=== PATIENT | male | born 1980 | race Caucasian/White ===

== ENCOUNTER 2019-07-27 08:48 | Inpatient (IN) | payer OTHER ==
[2019-07-27] MEDS ORDERED: Lactated Ringers 1,000 ML IV ONE (09:03)
[2019-07-27] MEDS ORDERED: Pantoprazole 40 MG Vial IVPUSH ONE (09:03)
[2019-07-27] MEDS ORDERED: Ondansetron 4 MG/2 ML SDV IVPUSH ONE (09:03)
[2019-07-27] MEDS ORDERED: Famotidine 20 MG/2 ML SDV IVPUSH ONE (09:03)
--- NOTE | 2019-07-27 09:03 | EDM.PDOC ---
ED HPI GENERAL MEDICAL PROBLEM - General Chief Complaint: Gastrointestinal Problem Stated Complaint: N/V, Fever Time Seen by Provider: 07/27/19 08:55 Source of Information: Reports: Patient, Family, Old Records ([facility] EMR. No paper hospital chart available.) History Limitations: Reports: No Limitations () - History of Present Illness INITIAL COMMENTS - FREE TEXT/NARRATIVE: The patient was brought to the emergency room via private automobile by his for evaluation of a 4 day history of generalized 8/10 arthralgias and generalized headache with additional fever and chills, however he did not measure his temperature. The patient did take Dramamine yesterday evening, however no other medications, including recent antipyretics. He denies any known exposure to infection, food poisoning, etc. Patient had about 6 episodes of emesis yesterday evening with no bowel movement during the last 4 days. He has not received his influenza booster to this point. He has had some anorexia during the last couple of days. No recent history of abdominal pain, heartburn, hematemesis, diarrhea, melena, gross hematochezia, or any food intolerance, including fatty foods, etc.. The patient denies any chest pain/pressure, heart flutter, dizziness, orthostasis, orthopnea, diaphoresis, paresthesias, recent decreased exercise tolerance, or any other anginal-type symptoms. He is also had a nonproductive cough with no dyspnea, wheezing, etc. He denies any gross hematuria, colic, or other UTI symptoms. Onset: Today, Sudden Onset Date: 07/24/19 Onset Time: 13:00 Duration: Constant, Getting Worse Location: Reports: Generalized Quality: Reports: Ache, Same as Previous Episode Severity: Moderate Improves with: Reports: None Worsens with: Reports: None Context: Reports: Other (As above). Denies: Sick Contact, Trauma Associated Symptoms: Reports: Cough, Diaphoresis, Fever/Chills, Headaches, Loss of Appetite, Nausea/Vomiting, Weakness (Secondary to current infection generalized). Denies: Confusion, Chest Pain, cough w sputum, Malaise, Rash, Seizure, Shortness of Breath, Syncope Treatments [employer]: Reports: Other Medication(s) (As above) Generalized Pain Score (Numeric/FACES): 8 - Related Data Allergies Allergy/AdvReac Type Severity Reaction Status Date / Time No Known Allergies Allergy Verified 07/27/19 08:49 Past Medical History HEENT History: Reports: Impaired Vision, Other (See Below). Denies: Allergic Rhinitis, Cataract, Hard of Hearing, Retinal Detachment Other HEENT History: Patient probably needs glasses, however has not had a recent eye exam or has any glasses.. Cardiovascular History: Reports: Other (See Below). Denies: Afib, Aneurysm, Arrhythmia, Blood Clots/VTE/DVT, CAD, Heart Failure, Heart Murmur, High Cholesterol, Hypertension, NV, Syncope Other Cardiovascular History: He does not know his cholesterol status. Respiratory History: Reports: None. Denies: Asthma, Bronchitis, Recurrent, COPD , Intubation, Difficult, Intubation, Previous, PE, Pneumothorax, TB Gastrointestinal History: Reports: Hemorrhoids. Denies: Bowel Obstruction, Celiac Disease, Chronic Constipation, Chronic Diarrhea, Colon Polyp, Gastritis, GERD, Hepatitis, Inflammatory Bowel Disease, Irritable Bowel Syndrome, Jaundice , Pancreatitis, PUD Genitourinary History: Reports: None. Denies: Acute Renal Failure, BPH, Chronic Renal Insuffiency, Renal Calculus, STD, Urinary Incontinence, UTI, Recurrent Musculoskeletal History: Reports: Fracture, Other (See Below). Denies: Amputation, Arthritis, Back Pain, Chronic, Gout, Neck Pain, Chronic, Osteoarthritis, RA, SLE Other Musculoskeletal History: Right thumb fracture in about 1995. Right finger #5 in 1999. Neurological History: Reports: Other (See Below). Denies: Cerebral Aneurysms, Concussion, CVA, Frequent Repetitive Habits (TICS), Headaches, Chronic, Head Trauma, Migraines, Neuropathy, Peripheral, Parkinson's, Seizure, TIA, Vertigo Other Neuro History: Chronic tic. Psychiatric History: Reports: None. Denies: Abuse, Victim of, ADD, ADHD, Addiction, Anxiety, Depression, Psych Hospitalization(s), PTSD, Suicide Attempt , Suicidal Ideation Endocrine/Metabolic History: Reports: None. Denies: Diabetes, Gestational, Diabetes, Type I, Diabetes, Type II, Diabetes Mellitus, Type 3c, Hypothyroidism , IDDM Hematologic History: Reports: None. Denies: Anemia, Blood Transfusion(s), Iron Deficiency Immunologic History: Reports: None. Denies: AIDS, HIV, SLE Oncologic (Cancer) History: Reports: None. Denies: Basal Cell Carcinoma, Colon , Hodgkin's Lymphoma, Leukemia, Lymphoma, Malignant Melanoma, Non-Hodgkin's Lymphoma, Squamous Cell Carcinoma Dermatologic History: Reports: None. Denies: Eczema, Psoriasis - Infectious Disease History Infectious Disease History: Reports: None, Chicken Pox. Denies: C-Difficile, Measles, Meningitis, Mononucleosis, MRSA, Mumps, Pertussis (Whooping Cough), Rheumatic Fever, Rubella, Scarlet Fever, Shingles, TB, VRE - Past Surgical History Head Surgeries/Procedures: Reports: None HEENT Surgical History: Reports: None. Denies: Adenoidectomy, Detached Retina, Eye Surgery, Laser Surgery, LASIK, Myringotomy w Tube(s), Naso-Sinus Surgery, Oral Surgery, Tonsillectomy Cardiovascular Surgical History: Reports: None. Denies: Varicose Respiratory Surgical History: Reports: None. Denies: Thoracentesis GI Surgical History: Denies: Appendectomy, Cholecystectomy, Colonoscopy, EGD, Hernia, Abdominal, Hernia, Inguinal, Hernia Repair/Other Male Surgical History: Reports: Circumcision, Other (See Below). Denies: Vasectomy Other Male Surgeries/Procedures: Circumcision as an infant Endocrine Surgical History: Reports: None. Denies: Thyroid Biopsy Neurological Surgical History: Reports: None. Denies: C-Spine, Discectomy, Laminectomy, Lumbar Spine, Sacral Spine, Spinal Fusion, Thoracic Spine, Vertebroplasty Musculoskeletal Surgical History: Reports: ORIF, Other (See Below). Denies: Arthroscopic Procedure, Carpal Tunnel, Ganglion Cyst, Joint Replacement, Shoulder Surgery Other Musculoskeletal Surgeries/Procedures:: ORIF of right fifth finger fracture in 1999. Oncologic Surgical History: Reports: None Dermatological Surgical History: Reports: None - Past Imaging History Past Imaging History: Reports: CAT Scan (Negative CT scan of the head on 01/23/16. ) Social & Family History - Family History HEENT: Reports: None. Denies: Glaucoma, Macular Degeneration, Retinal Detachment Cardiac: Denies: Afib, Aneurysm, Arrhythmia, Blood Clots/VTE/DVT, Bypass, CAD, Heart Failure, Heart Murmur, High Cholesterol, Hypertension, NV, Pacemaker, PVD/ COD Respiratory: Reports: COPD, Other (See Below). Denies: Asthma, PE, Pneumothorax , Sleep Apnea Other Respiratory Family Hisory: Paternal grandmother with fatal COPD in her late 80s. GI: Reports: None. Denies: Celiac Disease, Cholelithiasis, Colon Polyps, GERD, GI bleed, Inflammatory Bowel Disease, Irritable Bowel Syndrome, PUD : Reports: None. Denies: Renal Calculus, Renal Disease/Insufficiency, UTI, Recurrent OBGYN: Reports: None. Denies: Endometriosis, Recurrent Spontaneous Musculoskeletal: Reports: None. Denies: Arthritis, Gout, Osteoarthritis, RA, SLE Neurological: Reports: CVA, Other (See Below). Denies: Alzheimers Disease, Cerebral Aneurysms, Dementia, Migraines, MS, Parkinson's, Seizure, TIA, Vertigo Other Neurological Family History: Paternal grandfather with CVA initially in his 60s and then again in his 80s. Psychiatric: Reports: None. Denies: Abuse, Victim of, ADD, ADHD, Anxiety, Depression, Psych Hospitalization(s), PTSD, Suicide Attempt Endocrine/Metabolic: Reports: None. Denies: Diabetes, Type I, Diabetes, type II , Diabetes Mellitus, Type 3c, Hypothyroidism, IDDM Hematologic: Reports: None. Denies: Anemia, SLE Immunologic: Reports: None. Denies: AIDS, HIV, SLE Dermatologic: Reports: None. Denies: Eczema, Psoriasis Oncologic: Reports: Lung, Other (See Below). Denies: Colon, Hodgkin's Lymphoma , Leukemia, Lymphoma, Non-Hodgkin's Lymphoma, Prostate, Skin Other Oncologic Family History: Maternal grandmother with lung cancer in her mid 80s with history of tobacco use. - Tobacco Use Smoking Status *Q: Never Smoker Tobacco Use Within Last Twelve Months: No Used Tobacco, but Quit: No Smoking Cessation Information Provided To Patient: No Second Hand Smoke Exposure: No Second Hand Smoke Education Provided: No - Caffeine Use Caffeine Use: Reports: Coffee (4 cups per day), Energy Drinks (1 can per week), Soda (1 soda per day.). Denies: Tea - Alcohol Use Alcohol Use History: Yes Days Per Week of Alcohol Use: 0 Number of Drinks Per Day: 1 Number of Drinks Per Day Comment: Usually beer once per month. No previous DWIs , problems with alcohol abuse, etc. 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 ED EXAM, GI/ABD - Physical Exam Exam: See Below Exam Limited By: No Limitations General Appearance: Alert, WD/WN, No Apparent Distress Eyes: Bilateral: Normal Appearance (No nystagmus), EOMI (PERRLA) Ears: Normal External Exam, Normal Canal, Hearing Grossly Normal, Normal TMs Nose: Normal Mucosa, No Blood, Clear Rhinorrhea Throat/Mouth: Normal Lips, Normal Teeth, Normal Gums, Normal Voice, No Airway Compromise. No: Normal Oropharynx (Trace erythema in the posterior pharynx with no pinpoint exudates or peritonsillar abscess. Mild dry oral mucosa), Dysphagia, Perioral Cyanosis Head: Atraumatic, Normocephalic. No: Facial Swelling, Facial Tenderness, Sinus Tenderness Neck: Normal Inspection, Supple, Non-Tender, Full Range of Motion. No: Carotid Bruit, Lymphadenopathy (L), Lymphadenopathy (R), Thyromegaly Respiratory/Chest: No Respiratory Distress, No Accessory Muscle Use, Chest Non- Tender, Rales (Moderate in right upper posterior region). No: Rhonchi, Wheezing , Stridor, Pleural Rub, Retractions, Splinting Cardiovascular: Normal Peripheral Pulses, Regular Rate, Rhythm, No Edema, No Gallop, No JVD, No Murmur, No Rub. No: Gallop/S3, Gallop/S4, Friction Rub GI/Abdominal Exam: Soft, Non-Tender, No Organomegaly, No Distention, No Abnormal Bruit, No Mass, Pelvis Stable, Abnormal Bowel Sounds (Somewhat decreased diffuse bowel sounds however not high-pitched nature). No: Rebound, Tender (Male) Exam: Deferred Rectal (Males) Exam: Deferred Back Exam: Normal Inspection, Full Range of Motion. No: CVA Tenderness (L), CVA Tenderness (R), Muscle Spasm Extremities: Normal Inspection, Normal Range of Motion, Non-Tender, No Pedal Edema, Normal Capillary Refill. No: Kyung's Sign Neurological: Alert, Oriented, CN II-XII Intact, Normal Cognition, Normal Gait, Normal Reflexes (Negative Babinski's), No Motor/Sensory Deficits Psychiatric: Normal Affect, Normal Mood Skin Exam: Warm, Dry, Intact, Normal Color, No Rash. No: Diaphoretic, Wound/ Incision Lymphatic: No Adenopathy Course - Vital Signs Last Recorded V/S: Last Vital Signs Temp 38.3 C H 07/27/19 08:50 Pulse 97 07/27/19 10:25 Resp 34 H 07/27/19 10:25 BP 130/83 07/27/19 10:25 Pulse Ox 94 L 07/27/19 10:25 Vital Signs - 24 hr 07/27/19 07/27/19 08:50 09:44 Temperature [ 38.3 C H Temporal] Pulse, 77 87 Peripheral [ Pulse Oximetry] Respiratory 16 20 Rate Blood Pressure 96/59 L 139/69 [Right Upper Arm] O2 Sat by Pulse 93 L 94 L Oximetry - Orders/Labs/Meds Orders: Active Orders 24 hr Category Date Time Status Cardiac Monitoring [RC] . DIRECTED Care 07/27/19 09:27 Active Peripheral IV Care [RC] . DIRECTED Care 07/27/19 09:04 Active Nothing Per Oral Diet [DIET] Diet 07/27/19 Breakfast Active Abdomen Series w Chest 1V [CR] Stat Exams 07/27/19 09:03 Taken CULTURE BLOOD [BC] Stat Lab 07/27/19 08:58 Received CULTURE BLOOD [BC] Stat Lab 07/27/19 09:18 Received CULTURE STREP A CONFIRMATION [RM] Stat Lab 07/27/19 09:10 Results CULTURE URINE [RM] Stat Lab 07/27/19 09:03 Ordered STREP SCRN A RAPID W CULT CONF [RM] Stat Lab 07/27/19 09:10 Results UA W/MICROSCOPIC [URIN] Stat Lab 07/27/19 09:03 Ordered Sodium Chloride 0.9% [Saline Flush] Med 07/27/19 09:03 Active 10 ml FLUSH ASDIRECTED PRN Blood Culture x2 Reflex Set [OM.PC] Urgent Oth 07/27/19 09:03 Ordered Obtain Past Medical Record [OM.PC] Urgent Oth 07/27/19 09:03 Active Peripheral IV Insertion Adult [OM.PC] Stat Oth 07/27/19 09:03 Ordered Resuscitation Status Stat Resus Stat 07/27/19 09:03 Ordered Medication Orders Sodium Chloride (Saline Flush) 10 ml FLUSH ASDIRECTED PRN PRN Reason: Keep Vein Open Last Admin: 07/27/19 09:20 Dose: 10 ml Labs: Laboratory Tests 07/27/19 07/27/19 07/27/19 Range/Units 08:58 08:58 08:58 WBC 8.6 (4.0-10.2) K/uL RBC 5.20 (4.33-5.41) M/uL Hgb 15.5 (13.1-16.8) g/dL Hct 45.8 (39.0-49.0) % MCV 88.1 (84.0-98.0) fL MCH 29.8 (28.2-33.3) pg MCHC 33.8 (31.7-36.0) g/dL RDW 12.7 (11.2-14.1) % Plt Count 169 (150-350) K/uL Neut % (Auto) 77.0 (45.0-80.0) % Lymph % (Auto) 11.1 (10.0-50.0) % Winston % (Auto) 11.4 (2.0-14.0) % Eos % (Auto) 0.0 (0.0-5.0) % Baso % (Auto) 0.5 (0.0-2.0) % Neut # (Auto) 6.60 (1.40-7.00) K/uL Lymph # (Auto) 0.95 (0.50-3.50) K/uL Winston # (Auto) 0.98 (0.00-1.00) K/uL Eos # (Auto) 0.00 (0.00-0.50) K/uL Baso # (Auto) 0.04 (0.00-0.20) K/uL PT 11.1 (9.5-12.0) SEC INR 1.0 APTT 36.4 H (21.0-31.3) SEC Sodium (136-145) mmol/L Potassium (3.5-5.1) mmol/L Chloride (98-107) mmol/L Carbon Dioxide (21.0-32.0) mmol/L BUN (7-18) mg/dL Creatinine (0.51-1.17) mg/dL Est Cr Clr Drug Dosing mL/min Estimated GFR (MDRD) mL/min Glucose (74-106) mg/dL Hemoglobin A1c (4.3-5.7) % Lactic Acid (0.4-2.0) mmol/L Uric Acid (2.6-7.2) mg/dL Calcium (8.5-10.1) mg/dL Magnesium (1.8-2.4) mg/dL Total Bilirubin (0.2-1.0) mg/dL AST (15-37) U/L ALT (12-78) U/L Alkaline Phosphatase (46-116) IU/L Total Protein (6.4-8.2) g/dL Albumin (3.4-5.0) g/dL Amylase 25 (25-115) U/L Lipase (73-393) U/L 07/27/19 07/27/19 07/27/19 Range/Units 08:58 08:58 08:58 WBC (4.0-10.2) K/uL RBC (4.33-5.41) M/uL Hgb (13.1-16.8) g/dL Hct (39.0-49.0) % MCV (84.0-98.0) fL MCH (28.2-33.3) pg MCHC (31.7-36.0) g/dL RDW (11.2-14.1) % Plt Count (150-350) K/uL Neut % (Auto) (45.0-80.0) % Lymph % (Auto) (10.0-50.0) % Winston % (Auto) (2.0-14.0) % Eos % (Auto) (0.0-5.0) % Baso % (Auto) (0.0-2.0) % Neut # (Auto) (1.40-7.00) K/uL Lymph # (Auto) (0.50-3.50) K/uL Winston # (Auto) (0.00-1.00) K/uL Eos # (Auto) (0.00-0.50) K/uL Baso # (Auto) (0.00-0.20) K/uL PT (9.5-12.0) SEC INR APTT (21.0-31.3) SEC Sodium 137 (136-145) mmol/L Potassium 3.5 (3.5-5.1) mmol/L Chloride 102 (98-107) mmol/L Carbon Dioxide 24.5 (21.0-32.0) mmol/L BUN 17 (7-18) mg/dL Creatinine 1.04 (0.51-1.17) mg/dL Est Cr Clr Drug Dosing 106.74 mL/min Estimated GFR (MDRD) > 60 mL/min Glucose 167 H (74-106) mg/dL Hemoglobin A1c 5.0 (4.3-5.7) % Lactic Acid 1.9 (0.4-2.0) mmol/L Uric Acid 6.4 (2.6-7.2) mg/dL Calcium 8.8 (8.5-10.1) mg/dL Magnesium 1.8 (1.8-2.4) mg/dL Total Bilirubin 0.7 (0.2-1.0) mg/dL AST 14 L (15-37) U/L ALT 24 (12-78) U/L Alkaline Phosphatase 72 (46-116) IU/L Total Protein 7.9 (6.4-8.2) g/dL Albumin 3.4 (3.4-5.0) g/dL Amylase (25-115) U/L Lipase 60 L (73-393) U/L Blood cultures 2 were collected. Microbiology 07/27/19 09:05 Influenza Type A Antigen Screen - Final Nasal, Left NEGATIVE INFLUENZA A VIRUS AG REFERENCE RANGE: NEGATIVE Influenza Type B Antigen Screen - Final NEGATIVE INFLUENZA B VIRUS AG REFERENCE RANGE: NEGATIVE 07/27/19 09:10 Group A Streptococcus Rapid Screen - Final Throat NEGATIVE STREP A SCREEN REFERENCE RANGE: NEGATIVE Meds: Medications Generic Name Dose Route Start Last Admin Trade Name Freq PRN Reason Stop Dose Admin Sodium Chloride 10 ml 07/27/19 09:03 07/27/19 09:20 Saline Flush FLUSH 10 ml ASDIRECTED PRN Administration Keep Vein Open Discontinued Medications Generic Name Dose Route Start Last Admin Trade Name Freq PRN Reason Stop Dose Admin Acetaminophen 650 mg 07/27/19 10:05 07/27/19 10:17 Tylenol PO 07/27/19 10:06 650 mg NOW ONE Administration Famotidine 40 mg 07/27/19 09:03 07/27/19 09:18 Pepcid IVPUSH 07/27/19 09:04 40 mg ONETIME ONE Administration Lactated Ringer's 1,000 mls @ 999 mls/hr 07/27/19 09:03 07/27/19 09:34 Ringers, Lactated IV 07/27/19 10:03 999 mls/hr .BOLUS ONE Administration Ceftriaxone Sodium 1 gm/ 100 mls @ 200 mls/hr 07/27/19 09:53 07/27/19 09:59 Sodium Chloride IV 07/27/19 10:22 200 mls/hr ONETIME ONE Administration Ondansetron HCl 4 mg 07/27/19 09:03 07/27/19 09:15 Zofran IVPUSH 07/27/19 09:04 4 mg ONETIME ONE Administration Pantoprazole Sodium 40 mg 07/27/19 09:03 07/27/19 09:19 Protonix Iv IVPUSH 07/27/19 09:04 40 mg ONETIME ONE Administration - Radiology Interpretation Free Text/Narrative:: night monitor showed normal sinus rhythm in the 80s to 90s with no ectopy or arrhythmia. Acute, x-ray showed mild to moderate pulmonary obstructive disease with moderate to severe consolidation/infiltrates in the inferior aspect of the right upper lobe with no pneumothorax, cardiomegaly, CHF, etc.. Moderate diffuse stool with no fluid levels, free air, ileus, obstruction, etc. with nonspecific bowel gaseous pattern present Departure - Departure Time of Disposition: 10:35 Disposition: Admitted As Inpatient 68 Condition: Good Clinical Impression: Dehydration, Pneumonia, Viral gastroenteritis, Hyperglycemia - Discharge Information *PRESCRIPTION DRUG MONITORING PROGRAM REVIEWED*: Not Applicable *COPY OF PRESCRIPTION DRUG MONITORING REPORT IN PATIENT TRU: Not Applicable Sepsis Event Note - Evaluation Sepsis Screening Result: No Definite Risk - Focused Exam Vital Signs: Vital Signs Temp Pulse Resp BP Pulse Ox 07/27/19 09:44 87 20 139/69 94 L 07/27/19 08:50 38.3 C H 77 16 96/59 L 93 L Date Exam was Performed: 07/27/19 Time Exam was Performed: 11:24 - Problem List & Annotations (1) Pneumonia SNOMED Code(s): 025301742 Code(s): J18.9 - PNEUMONIA, UNSPECIFIED ORGANISM Status: Acute Priority: High Current Visit: Yes Annotation/Comment:: Significant pneumonia by chest x-ray and physical exam. Note blood cultures 2 were collected. Lactic acid level was normal with no leukocytosis and no direct evidence of sepsis. IV Rocephin initiated in the emergency room with continuation of IV Rocephin and IV Cipro therapy during this hospitalization. Patient also has evidence of possible pulmonary obstructive disease based on today's x-ray with no previous history of tobacco use. Aggressive nebulizer therapy during this hospitalization. Qualifiers: Pneumonia type: due to unspecified organism Laterality: right Lung location: upper lobe of lung Qualified Code(s): J18.9 - Pneumonia, unspecified organism (2) Viral gastroenteritis SNOMED Code(s): 946439901 Code(s): A08.4 - VIRAL INTESTINAL INFECTION, UNSPECIFIED Status: Acute Current Visit: Yes Annotation/Comment:: Likely concomitant viral gastroenteritis. IV fluids, etc. as above. Patient and his do need update of immunizations, including influenza booster in the near future once his current infection resolves. (3) Dehydration SNOMED Code(s): 33322879 Code(s): E86.0 - DEHYDRATION Status: Acute Priority: High Current Visit : Yes Onset Date: 07/27/19 Annotation/Comment:: Patient given a 1 L bolus of lactated Ringer's in the emergency room. Additional high-dose IV Pepcid and Protonix were given as GI prophylaxis. Continue aggressive IV hydration during initial phases of this hospitalization. (4) Hyperglycemia SNOMED Code(s): 90055264 Code(s): R73.9 - HYPERGLYCEMIA, UNSPECIFIED Status: Acute Priority: Medium Current Visit: Yes Onset Date: 07/27/19 Annotation/Comment:: Glycosylated hemoglobin was normal in the emergency room. Note the patient normally does not have routine preventive health care. - Problem List Review Problem List Initiated/Reviewed/Updated: Yes - My Orders Last 24 Hours: My Active Orders 07/27/19 08:58 CULTURE BLOOD [BC] Stat 07/27/19 09:03 Abdomen Series w Chest 1V [CR] Stat CULTURE URINE [RM] Stat UA W/MICROSCOPIC [URIN] Stat Sodium Chloride 0.9% [Saline Flush] 10 ml FLUSH ASDIRECTED PRN Blood Culture x2 Reflex Set [OM.PC] Urgent Obtain Past Medical Record [OM.PC] Urgent Peripheral IV Insertion Adult [OM.PC] Stat Resuscitation Status Stat 07/27/19 09:04 Peripheral IV Care [RC] . DIRECTED 07/27/19 09:10 CULTURE STREP A CONFIRMATION [RM] Stat STREP SCRN A RAPID W CULT CONF [RM] Stat 07/27/19 09:18 CULTURE BLOOD [BC] Stat 07/27/19 09:27 Cardiac Monitoring [RC] . DIRECTED 07/27/19 Breakfast Nothing Per Oral Diet [DIET] - Assessment/Plan Admission H&P: Please use this note as an admission H&P Last 24 Hours: My Active Orders 07/27/19 08:58 CULTURE BLOOD [BC] Stat 07/27/19 09:03 Abdomen Series w Chest 1V [CR] Stat CULTURE URINE [RM] Stat UA W/MICROSCOPIC [URIN] Stat Sodium Chloride 0.9% [Saline Flush] 10 ml FLUSH ASDIRECTED PRN Blood Culture x2 Reflex Set [OM.PC] Urgent Obtain Past Medical Record [OM.PC] Urgent Peripheral IV Insertion Adult [OM.PC] Stat Resuscitation Status Stat 07/27/19 09:04 Peripheral IV Care [RC] . DIRECTED 07/27/19 09:10 CULTURE STREP A CONFIRMATION [RM] Stat STREP SCRN A RAPID W CULT CONF [RM] Stat 07/27/19 09:18 CULTURE BLOOD [BC] Stat 07/27/19 09:27 Cardiac Monitoring [RC] . DIRECTED 07/27/19 Breakfast Nothing Per Oral Diet [DIET] Assessment:: As above Plan: As above. Extensive precautions were given to the patient and his , who is in agreement with the treatment plan. The patient will require about 3-4 days of inpatient/acute care secondary to multiple health problems as above.
[2019-07-27] MEDS: Sodium Chloride 0.9% 10 ML Syringe FLUSH PRN ×2 (09:20→11:48)
[2019-07-27 09:33] LABS: CHLORIDE,CL 102 mmol/L (98-107); SODIUM,NA 137 mmol/L (136-145)
[2019-07-27] MEDS ORDERED: cefTRIAXone 1 GM in Sodium Chloride 0.9% 100 ML IV ONE (09:53)
[2019-07-27] MEDS ORDERED: Acetaminophen 325 MG Tab PO ONE (10:05)
[2019-07-27] MEDS ORDERED: Ketorolac 30 MG/ML SDV IVPUSH ONE (11:28)
[2019-07-27] MEDS ORDERED: Dextromethorphan/guaiFENesin 600-30 MG Tab.ER PO SCH (11:29)
[2019-07-27] MEDS ORDERED: Albuterol/Ipratropium 3.0-0.5 MG/3 ML Neb Soln NEB PRN (11:29)
[2019-07-27] MEDS ORDERED: Ketorolac 30 MG/ML SDV IVPUSH PRN (11:31)
[2019-07-27] MEDS: Levofloxacin/Dextrose 5%-Water 500 MG in Premix Bag 1 BAG IV SCH (11:48)
[2019-07-27] MEDS: Lactated Ringers 1,000 ML IV SCH ×2 (12:51→20:49)
[2019-07-27] MEDS: Sodium Chloride 0.9% 10 ML Syringe FLUSH SCH ×2 (12:53→22:40)
[2019-07-27] MEDS: Albuterol/Ipratropium 3.0-0.5 MG/3 ML Neb Soln NEB SCH ×2 (14:55→20:39)
[2019-07-27] MEDS: Ketorolac 15 MG/ML SDV IVPUSH PRN (17:29)
[2019-07-27] MEDS: Acetaminophen 325 MG Tab PO PRN (17:59)
[2019-07-27] MEDS: Dextromethorphan/guaiFENesin 600-30 MG Tab.ER PO SCH (20:39)
[2019-07-27] MEDS: cefTRIAXone 1 GM in Sodium Chloride 0.9% 100 ML IV SCH (22:08)
[2019-07-28] MEDS: Acetaminophen 325 MG Tab PO PRN ×4 (01:01→19:00)
[2019-07-28] MEDS: Temazepam 15 MG Cap PO PRN ×2 (01:01→22:15)
[2019-07-28] MEDS: Albuterol/Ipratropium 3.0-0.5 MG/3 ML Neb Soln NEB SCH ×4 (01:02→20:57)
[2019-07-28] MEDS: Lactated Ringers 1,000 ML IV SCH ×3 (04:54→23:38)
[2019-07-28] MEDS: Albuterol 0.083% 2.5 MG/3 ML Neb Soln NEB PRN ×3 (06:17→19:01)
[2019-07-28] MEDS: Dextromethorphan/guaiFENesin 600-30 MG Tab.ER PO SCH ×2 (07:47→20:57)
[2019-07-28] MEDS: Ketorolac 15 MG/ML SDV IVPUSH PRN ×3 (08:01→20:56)
[2019-07-28] MEDS: Sodium Chloride 0.9% 10 ML Syringe FLUSH PRN ×2 (08:03→11:36)
[2019-07-28 08:22] LABS: CHLORIDE,CL 103 mmol/L (98-107); SODIUM,NA 138 mmol/L (136-145)
[2019-07-28] MEDS: cefTRIAXone 1 GM in Sodium Chloride 0.9% 100 ML IV SCH ×2 (10:51→22:15)
[2019-07-28] MEDS: Sodium Chloride 0.9% 10 ML Syringe FLUSH SCH (10:52)
[2019-07-28] MEDS: Levofloxacin/Dextrose 5%-Water 500 MG in Premix Bag 1 BAG IV SCH (11:31)
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
[2019-07-28] MEDS ORDERED: Potassium Chloride 20 MEQ Tab.ER PO ONE (14:15)
[2019-07-29] MEDS: Sodium Chloride 0.9% 10 ML Syringe FLUSH SCH ×2 (01:36→11:53)
[2019-07-29] MEDS ORDERED: Ondansetron 4 MG/2 ML SDV IVPUSH PRN (02:58)
[2019-07-29] MEDS ORDERED: Pantoprazole 40 MG Vial IVPUSH SCH (03:00)
[2019-07-29] MEDS ORDERED: Famotidine 20 MG/2 ML SDV IVPUSH SCH (03:00)
[2019-07-29] MEDS: Ketorolac 15 MG/ML SDV IVPUSH PRN ×2 (03:08→11:10)
[2019-07-29] MEDS: Albuterol/Ipratropium 3.0-0.5 MG/3 ML Neb Soln NEB SCH ×2 (03:13→08:01)
[2019-07-29] MEDS: Sodium Chloride 0.9% 10 ML Syringe FLUSH PRN ×2 (03:14→11:10)
[2019-07-29] MEDS: Dextromethorphan/guaiFENesin 600-30 MG Tab.ER PO SCH (08:01)
[2019-07-29] MEDS: Acetaminophen 325 MG Tab PO PRN (08:01)
[2019-07-29] MEDS: Lactated Ringers 1,000 ML IV SCH (08:03)
[2019-07-29] MEDS ORDERED: Iopamidol 612 MG/ML 100 ML Bottle IVPUSH ONE ×2 (09:38→09:42)
[2019-07-29] MEDS: cefTRIAXone 1 GM in Sodium Chloride 0.9% 100 ML IV SCH (11:10)
[2019-07-29] MEDS: Levofloxacin/Dextrose 5%-Water 500 MG in Premix Bag 1 BAG IV SCH (11:52)
--- NOTE | 2019-07-29 12:14 | PCM.DCSUM1 ---
Discharge Summary - Hospital Course Free Text/Narrative:: Pt with worsening pneumonia CT shows SOFIE infiltrate and infiltrates filling RML and RLL D/W Dr Zavala On-call Hospitalist [facility] Will accept in transfer Brief History: Pt admitted with pneumonia Pt n Rocephin and Levaquin Worsend over night CT shows SOFIE, RML and RLL pneumonia D/W Dr Zavala On-call hospitalist [facility] Will accept in transfer Diagnosis: Stroke: No - Discharge Data Discharge Date: 07/29/19 Discharge Disposition: DC/Tfer to Acute Hospital 02 Condition: Fair - Referral to Home Health Primary Care Physician: PCP None - Discharge Diagnosis/Problem(s) (1) Pneumonia SNOMED Code(s): 781446721 ICD Code: J18.9 - PNEUMONIA, UNSPECIFIED ORGANISM Status: Acute Priority : High Current Visit: Yes Onset Date: ~07/24/19 Problem Details: Significant pneumonia by chest x-ray and physical exam on admission. Note blood cultures 2 were collected in the emergency room. Lactic acid level was normal with no leukocytosis and no direct evidence of sepsis. IV Rocephin initiated in the emergency room with continuation of IV Rocephin and IV Cipro therapy during this hospitalization. Patient also has evidence of possible pulmonary obstructive disease based on today's x-ray with no previous history of tobacco use. Aggressive nebulizer therapy during this hospitalization. Consider PFTs once patient's current infection has resolved. Qualifiers: Pneumonia type: due to unspecified organism Laterality: bilateral Lung location: unspecified part of lung Qualified Code(s): J18.9 - Pneumonia, unspecified organism - Discharge Plan *PRESCRIPTION DRUG MONITORING PROGRAM REVIEWED*: Not Applicable *COPY OF PRESCRIPTION DRUG MONITORING REPORT IN PATIENT TRU: Not Applicable Home Medications: Home Meds Acetaminophen [Tylenol] 650 mg PO Q4HR PRN 07/27/19 [History] Ibuprofen 400 mg PO Q6HR PRN 07/27/19 [History] Forms: ED Department Discharge Referrals: PCP,None [Primary Care Provider] - - Discharge Summary/Plan Comment DC Time >30 min.: Yes - General Info Date of Service: 07/29/19 Admission Dx/Problem (Free Text: 1. Right upper lobe pneumonia - Review of Systems General: Reports: Fever Pulmonary: Reports: Shortness of Breath, Cough Cardiovascular: Reports: No Symptoms - Patient Data Vitals - Most Recent: Last Vital Signs Temp 37.6 C 07/29/19 08:00 Pulse 86 07/29/19 08:00 Resp 19 07/29/19 08:00 BP 140/86 07/29/19 08:00 Pulse Ox 97 07/29/19 08:00 Weight - Most Recent: 105.233 kg I&O - Last 24 hours: Intake & Output 07/29/19 07/29/19 07/29/19 02:59 10:59 18:59 Intake Total 1350 Output Total 600 400 Balance -600 950 LEAH Results - Last 24 hrs: Microbiology 07/27/19 09:18 Aerobic Blood Culture - Preliminary Blood - Venous - Lab Draw NO GROWTH AFTER 2 DAYS Anaerobic Blood Culture - Preliminary NO GROWTH AFTER 2 DAYS 07/27/19 08:58 Aerobic Blood Culture - Preliminary Blood - Venous NO GROWTH AFTER 2 DAYS Anaerobic Blood Culture - Preliminary NO GROWTH AFTER 2 DAYS 07/27/19 09:03 Urine Culture - Preliminary Urine, Clean Catch NO GROWTH AFTER 1 DAY 07/27/19 09:10 Quick Strep Confirmation Culture - Final Throat NO GROUP A STREP ISOLATED REFERENCE RANGE: NEGATIVE Group A Streptococcus Rapid Screen - Final NEGATIVE STREP A SCREEN REFERENCE RANGE: NEGATIVE Med Orders - Current: Current Medications Acetaminophen (Tylenol) 650 mg PO Q4H PRN PRN Reason: Pain/Fever Last Admin: 07/29/19 08:01 Dose: 650 mg Albuterol (Proventil Neb Soln) 2.5 mg NEB Q2H PRN PRN Reason: Dyspnea Last Admin: 07/28/19 19:01 Dose: 2.5 mg Albuterol/Ipratropium (Duoneb 3.0-0.5 Mg/3 Ml) 3 ml NEB Q4HRRT PRN PRN Reason: Dyspnea Albuterol/Ipratropium (Duoneb 3.0-0.5 Mg/3 Ml) 3 ml NEB Q6HRRT [facility] Last Admin: 07/29/19 08:01 Dose: 3 ml Famotidine (Pepcid) 20 mg IVPUSH Q12H [facility] Last Admin: 07/29/19 03:13 Dose: 20 mg Guaifenesin/Dextromethorphan (Mucinex Dm Er 600-30 Mg) 1 tab PO Q12HR [facility] Last Admin: 07/29/19 08:01 Dose: 1 tab Ceftriaxone Sodium 1 gm/ (Sodium Chloride) 100 mls @ 200 mls/hr IV Q12H [facility] Last Admin: 07/29/19 11:10 Dose: 200 mls/hr Levofloxacin/Dextrose 500 mg/ (Premix) 100 mls @ 100 mls/hr IV Q24H [facility] Last Admin: 07/29/19 11:52 Dose: 100 mls/hr Lactated Ringer's (Ringers, Lactated) 1,000 mls @ 125 mls/hr IV ASDIRECTED [facility] Last Admin: 07/29/19 08:03 Dose: 125 mls/hr Influenza Virus Vaccine (Pharmacy To Dose - Influenza Vaccine) 1 each IM ONETIME ONE Stop: 07/27/19 11:30 Ketorolac Tromethamine (Toradol) 15 mg IVPUSH Q6H PRN PRN Reason: Pain (severe 7-10) Stop: 07/29/19 18:00 Last Admin: 07/29/19 11:10 Dose: 15 mg Ondansetron HCl (Zofran) 4 mg IVPUSH Q6H PRN PRN Reason: Nausea/Vomiting Last Admin: 07/29/19 03:08 Dose: 4 mg Pantoprazole Sodium (Protonix Iv) 40 mg IVPUSH Q12H [facility] Last Admin: 07/29/19 03:14 Dose: 40 mg Sodium Chloride (Saline Flush) 10 ml FLUSH ASDIRECTED PRN PRN Reason: Keep Vein Open Last Admin: 07/29/19 11:10 Dose: 10 ml Sodium Chloride (Saline Flush) 10 ml FLUSH Q12H [facility] Last Admin: 07/29/19 11:53 Dose: 10 ml Temazepam (Restoril) 15 mg PO BEDTIME PRN PRN Reason: Insomnia Last Admin: 07/28/19 22:15 Dose: 15 mg Discontinued Medications Acetaminophen (Tylenol) 650 mg PO NOW ONE Stop: 07/27/19 10:06 Last Admin: 07/27/19 10:17 Dose: 650 mg Famotidine (Pepcid) 40 mg IVPUSH ONETIME ONE Stop: 07/27/19 09:04 Last Admin: 07/27/19 09:18 Dose: 40 mg Guaifenesin/Dextromethorphan (Mucinex Dm Er 600-30 Mg) 1 tab PO BID [facility] Last Admin: 07/27/19 11:47 Dose: 1 tab Lactated Ringer's (Ringers, Lactated) 1,000 mls @ 999 mls/hr IV .BOLUS ONE Stop: 07/27/19 10:03 Last Admin: 07/27/19 09:34 Dose: 999 mls/hr Ceftriaxone Sodium 1 gm/ (Sodium Chloride) 100 mls @ 200 mls/hr IV ONETIME ONE Stop: 07/27/19 10:22 Last Admin: 07/27/19 09:59 Dose: 200 mls/hr Iopamidol (Isovue-300 (61%)) 100 ml IVPUSH ONETIME ONE Stop: 07/29/19 09:43 Ketorolac Tromethamine (Toradol) 30 mg IVPUSH ONETIME ONE Stop: 07/27/19 11:29 Last Admin: 07/27/19 11:47 Dose: 30 mg Ketorolac Tromethamine (Toradol) 30 mg IVPUSH Q6H PRN PRN Reason: Pain (severe 7-10) Stop: 07/29/19 18:00 Ondansetron HCl (Zofran) 4 mg IVPUSH ONETIME ONE Stop: 07/27/19 09:04 Last Admin: 07/27/19 09:15 Dose: 4 mg Pantoprazole Sodium (Protonix Iv) 40 mg IVPUSH ONETIME ONE Stop: 07/27/19 09:04 Last Admin: 07/27/19 09:19 Dose: 40 mg Potassium Chloride (Klor-Con M20) 20 meq PO ONETIME ONE Stop: 07/28/19 14:16 Last Admin: 07/28/19 14:34 Dose: 20 meq - Exam Quality Assessment: Reports: Supplemental Oxygen Neck: Reports: Supple Lungs: Reports: Decreased Breath Sounds, Crackles Cardiovascular: Reports: Tachycardia GI/Abdominal Exam: Non-Tender Extremities: No Pedal Edema Physical Findings Comments:: CT shows SOFIE pneumonia as well as infiltrates filling RML and RLL pneumonias
== END 2019-07-29 14:00 | DRG 195 ==
LOC: LL.ED 08:48 → LL.MS 09:56
PROVIDERS: ADMIT Family Medicine; ATTEND Family Medicine
DX: J18.1 Lobar pneumonia, unspecified organism (principal); E86.0 Dehydration; A08.4 Viral intestinal infection, unspecified; E87.6 Hypokalemia; R73.9 Hyperglycemia, unspecified; Z90.49 Acquired absence of other specified parts of digestive tract
CPT/HCPCS: 36415; 71260; 74022; 80053; 81001; 82150; 83036; 83605; 83690; 83735; 84550; 85025; 85610; 85730; 87040; 87081; 87086; 87430; 87804; 94640; 94667; 94668; 96365; 96375; 99285-25; A9270-GY; C9113; J0696; J1885; J1956; J2405; J3490; J7050; J7120; J7613-GY; J7620-GY; Q9967